=== PATIENT | female | born 1980 | race Caucasian/White ===

== ENCOUNTER 2018-09-17 18:39 | Emergency (ER) | payer BC ==
[2018-09-17 20:11] VITALS: BP 129/66
--- NOTE | 2018-09-17 20:42 | ED ---
Skin Complaint - HPI Summary HPI Summary: 38 y/o female presents to the urgent care c/o tick bite in the RUQ abdomen she noticed tonight when she took a shower. Pt believes she may have been bitten Friday or yesterday when she went outside. Pt denies pain, fever, MARTÍNEZ, joint pain , abdominal pain, N/V/d. Hx of tick bite 2 years ago and never got prophylactic treatment - History of Current Complaint Chief Complaint: UCSkin Time Seen by Provider: 09/17/18 20:40 Stated Complaint: TICK Hx Obtained From: Patient Hx Last Menstrual Period: september 10 Onset/Duration: Started Days Ago - probably yesterday, Still Present Timing: Lasting Days - 1 day Onset Severity: Mild Current Severity: Mild Pain Intensity: 1 Pain Scale Used: 0-10 Numeric Skin Location: Discrete - RUQ abdomen w/ tick bite Character: Redness Aggravating Symptom(s): Touch Alleviating Symptom(s): Nothing Associated Signs & Symptoms: Rash - tick bite RUQ abdomen Related History: Possible Reaction to: Insect - tick - Allergy/Home Medications Allergies/Adverse Reactions: Allergies Allergy/AdvReac Type Severity Reaction Status Date / Time morphine Allergy Itching Verified 09/17/18 20:11 Home Medications: Home Medications Antiinflammatory 09/17/18 [History] PMH/Surg Hx/FS Hx/Imm Hx Previously Healthy: Yes Endocrine/Hematology History: Denies: Hx Diabetes, Hx Thyroid Disease Cardiovascular History: Denies: Hx Hypertension Respiratory History: Denies: Hx Asthma, Hx Chronic Obstructive Pulmonary Disease (COPD) GI History: Denies: Hx Ulcer Psychiatric History: Reports: Hx Attention Deficit Hyperactivity Disorder - Surgical History Surgery Procedure, Year, and Place: . hernia Infectious Disease History: No Infectious Disease History: Denies: Hx Hepatitis, Hx Human Immunodeficiency Virus (HIV), Traveled Outside the [place] in Last 30 Days - Family History Family History: dyslipidemia - Social History Occupation: Employed Full-time Lives: With Family Alcohol Use: None Substance Use Type: Reports: None Smoking Status (MU): Never Smoked Tobacco Review of Systems Constitutional: Negative Eyes: Negative ENT: Negative Cardiovascular: Negative Respiratory: Negative Gastrointestinal: Negative Genitourinary: Negative Musculoskeletal: Negative Positive: Rash - RUQ abdomen w/ tick Neurological: Negative Psychological: Normal All Other Systems Reviewed And Are Negative: Yes Physical Exam - Summary Physical Exam Summary: Vital Signs Reviewed: Yes General: well developed, well nourished female sitting in the examining table w/ o any apparent distress. Eyes: Positive: Conjunctiva Clear - PERRLA, EOMI ENT: Positive: Normal ENT inspection, Hearing grossly normal, Pharynx normal, TMs normal Neck: Positive: Supple, Nontender, No Lymphadenopathy Respiratory: Positive: Chest nontender, Lungs clear, Normal breath sounds Cardiovascular: Positive: RRR, No Murmur, Pulses Normal Abdomen Description: Positive: Nontender, No Organomegaly, Soft. Negative: CVA Tenderness (R), CVA Tenderness (L) Bowel Sounds: Positive: Present Musculoskeletal: Positive: Strength Intact, ROM Intact, No Edema Neurological Exam: Normal Psychological Exam: Normal Skin: Positive: rashes - RUQ abdomen with tick bite with surrounding erythema , non tender to palpation. tick still present, no swelling or drainage observed. Triage Information Reviewed: Yes Vital Signs On Initial Exam: Initial Vitals Temp Pulse Resp BP Pulse Ox 99.3 F 82 18 129/66 98 09/17/18 20:04 09/17/18 20:04 09/17/18 20:04 09/17/18 20:04 09/17/18 20:04 Diagnostics - Vital Signs Vital Signs Temp Pulse Resp BP Pulse Ox 09/17/18 20:04 99.3 F 82 18 129/66 98 - Laboratory Lab Statement: Any lab studies that have been ordered have been reviewed, and results considered in the medical decision making process. Course/Dx - Course Course Of Treatment: 38 y/o female presents to the urgent care c/o tick bite in the RUQ abdomen she noticed tonight when she took a shower. Pt believes she may have been bitten Friday or yesterday when she went outside. Pt denies pain, fever, MARTÍNEZ, joint pain, abdominal pain, N/V/d. Hx of tick bite 2 years ago and never got prophylactic treatment. Hx obtained. Pt w/ a small tick in the RUQ on examination. Tick was removed w/ twister technique. After tick removal and the skin cleansing. Antibiotic prophylaxis with Doxycycline given to the patient to prevent lyme Disease.. Pt tolerated well medication. Pt advised to observe the area for the development or Erythema Migrans for upto 30 days following exposure. Advised if he develops fever or erythema Migrans to return to the clinic or PCP for further treatment .Pt understood and agreed with plan of care. - Differential Diagnoses - Skin Complaint Differential Diagnoses: Abscess, Contact Dermatitis, Local Allergic Reaction, MRSA, Tick Born Illness, Other - insect bite, bee sting - Diagnoses Provider Diagnoses: Tick bite of abdominal wall Discharge - Sign-Out/Discharge Documenting (check all that apply): Patient Departure - D/C home All imaging exams completed and their final reports reviewed: No Studies - Discharge Plan Condition: Stable Disposition: HOME Patient Education Materials: Tick Bite (ED) Referrals: [facility] [Outside] - 2 Weeks Jose ORR,Danilo Casas [Medical Doctor] - If Needed Additional Instructions: 1- Please observe the area for the development or Erythema Migrans for upto 30 days following exposure. Components of the tick saliva can cause transient erythema that should not be confused with Erythema Migrans. If you develop the bull's eye rash, fever, joint pains please return to the urgent care or f/u with your PCP or Dr Garcia for further management. Apply Bacitracin oint around tick bite as directed 2-Antibiotic prophylaxis with Doxycycline was given to you today to prevent lyme Disease. Lyme serology can be drawn in 2 weeks with your PCP to r/o Lyme disease since there is probability of negative results at early exposure. - Billing Disposition and Condition Condition: STABLE Disposition: Home - Attestation Statements Provider Attestation: Per institutional requirements, I have reviewed the chart, however, I was not consulted specifically or made aware of this patient by the midlevel provider. I did not personally evaluate, interact with , or disposition this patient.
[2018-09-17] MEDS ORDERED: DOXYcycline CAP(*) 100 MG PO ONE (20:54)
== END 2018-09-17 21:11 | disposition home or self-care (01) ==
LOC: UCCORT 18:39
DX: S30.861A Insect bite (nonvenomous) of abdominal wall, initial encounter (principal); Z88.5 Allergy status to narcotic agent; W57.XXXA Bitten or stung by nonvenomous insect and other nonvenomous arthropods, initial encounter; Y92.9 Unspecified place or not applicable
CPT/HCPCS: 99202; A9270-GY; G0463